=== PATIENT | female | born 1980 | race Caucasian/White ===

== ENCOUNTER → 2016-12-25 | Outpatient (CLI) | payer OTHER | LOC: FIMAGING 15:18 | PROVIDERS: ATTEND Podiatrist Foot & Ankle Surgery | DX: M25.571 Pain in right ankle and joints of right foot (principal) ==

== ENCOUNTER → 2017-10-02 | Outpatient (CLI) | payer OTHER | LOC: BMCIMAGING 12:51 | PROVIDERS: ATTEND Family Medicine | DX: N85.8 Other specified noninflammatory disorders of uterus (principal); R10.2 Pelvic and perineal pain ==